=== PATIENT | female | born 1965 | race Caucasian/White ===

== ENCOUNTER 2018-05-07 11:47 | Inpatient (IN) | payer MEDICARE, MEDICAID ==
[~2018-05-07] VITALS: Ht 168.9 cm; Wt 82.6 kg
--- NOTE | 2018-05-07 14:40 | NUR ---
Admit Note: Legal Status: 5150 / Conserved Pt brought to unit from [facility] the order was accepted by Dr. Guzmán. On 05/06/18 pt called crisis services stating she was going to kill herself and had stabbed herself in the stomach. Pt has been decreasing mentally becoming paranoid. All consent forms sent to [place] [facility] see legal consents in chart Property inventoried and put in safe and locker. Pt reports she is allergic to Zyprexa.
[2018-05-07 15:48] VITALS: BP 133/95
[2018-05-07] MEDS ORDERED: tuberculin, purif. prot. deriv. 5 units/0.1ml ID ONE (16:05)
[2018-05-07] MEDS ORDERED: acetaminophen 325mg tablet PO PRN ×2 (16:06)
[2018-05-07] MEDS ORDERED: mag hydrox/Alum hydrox/simeth 30ml oral suspension PO PRN (16:06)
[2018-05-07] MEDS ORDERED: CLON-527 PO ×2 (16:32→17:25)
[2018-05-07] MEDS ORDERED: DOCU-148 PO (16:32)
[2018-05-07] MEDS ORDERED: HYDR50CA PO ×3 (16:32→17:25)
[2018-05-07] MEDS ORDERED: ZIPR60CA2 PO ×2 (16:32→17:25)
[2018-05-07] MEDS ORDERED: LEVO75TA PO ×2 (16:32→17:25)
[2018-05-07] MEDS ORDERED: ZIPR40CA2 PO ×2 (16:32→17:25)
[2018-05-07] MEDS ORDERED: NORT25CA PO ×2 (16:32→17:25)
[2018-05-07] MEDS ORDERED: METF500T PO ×2 (16:32→17:25)
[2018-05-07 17:16] VITALS: BP 133/95
[2018-05-07] MEDS ORDERED: DOCU250C15 PO (17:25)
--- NOTE | 2018-05-07 17:37 | NUR ---
NURSING ADMIT NOTE Why is patient here: Started experiencing increased paranoia and stating she had been messing up her medications. Recently received a 30 day notice to vacate her apt. which resulted in increased anxiety and sleeplessness. Feels alone and has repeatedly talked about her own . Stated she lied to crisis services about stabbing herself so she could be admitted to the hospital. Paranoid, believes [facility] health employees stole her phone and are lying about her to "keep her locked up for life. Denies suicidal thoughts at this time.
[2018-05-07 19:58] VITALS: BP 155/95
[2018-05-07] MEDS ORDERED: ziprasidone 20mg capsule PO SCH ×2 (21:00)
[2018-05-07] MEDS: docusate sod 250mg capsule PO SCH (21:01)
[2018-05-07] MEDS: hydrOXYzine 25 MG tablet PO SCH (21:02)
[2018-05-07] MEDS: clonazePAM 1mg tablet PO SCH (21:02)
[2018-05-07] MEDS: nicotine prolacrilex 2mg gum BC PRN (21:03)
[2018-05-07] MEDS: nortriptyline 25mg capsule PO SCH (21:16)
--- NOTE | 2018-05-08 00:19 | NUR ---
Nursing Progress note Chief Complaint Legal hold: 9170 Client on involuntary status for DTS Report received from nurse with use of DAMON Lopez rn Why are they here: Started experiencing increased paranoia and stating she had been messing up her medications. Recently received a 30 day notice to vacate her apt. which resulted in increased anxiety and sleeplessness. Feels alone and has repeatedly talked about her own . Stated she lied to crisis services about stabbing herself so she could be admitted to the hospital. Paranoid, believes [facility] health employees stole her phone and are lying about her to "keep her locked up for life. Denies suicidal thoughts at this time. Diagnosis/presenting symptoms: Bipolar, Ptsd, Manic. Pt states "Im more manic than depressed." Assessment What has happened this shift: Pt was sleeping at change of shift. 1:1 assessment completed at bedside. pt denies s/i, denies h/i. States she called the police and said she stabbed herself because she couldnt find her phone and believes "the mental health people stole my phone and I called the police but its the only way to get them to do something because they dont believe mental health people so I had to say I stabbed myself, no Im going to be in trouble for making false reports, but its not my fault." Pt was manic and talkative during her shift, moving from group room to her room and walking the hallways. S/I, H/I: Pt denies A/VH: Pt denies Sleep: pt states she will not sleep tonight w/out 2 klonopin, pt had difficult time falling asleep but eventually did. ADL's: independently. Group attendance: no evening groups Were meds taken: Yes Any med S/E: None reported or observed Mental Status Exam Appearance: Pt is wearing green scrubs and fingerless mittens on her hands. Pt has long unkempt hair. pt is adequately groomed and dressed. Eye contact: Good Behavior: manic talkative Speech: rapid, lout, talkative Mood: anxious, Affect: animated Thought process: tangential Thought Content: talking about why she is here. Cognition: a/o x4 Insight: Poor Judgment: Poor Interventions PRN's used: Nicotine Gum Therapeutic interventions: q15 min checks for safety, 1:1 assessment, Restraints/seclusion/emergency medication: no Justification of Continued Inpatient Treatment: Medication stabilization
[2018-05-08] MEDS: nicotine prolacrilex 2mg gum BC PRN ×4 (07:00→20:52)
[2018-05-08] MEDS: metFORMIN 500mg tablet PO SCH ×3 (07:00→16:22)
[2018-05-08 08:00] VITALS: BP 142/74
[2018-05-08] MEDS: levoTHYROXINE 75mcg tablet PO SCH (08:37)
[2018-05-08] MEDS: ziprasidone 20mg capsule PO SCH ×2 (08:37→20:49)
[2018-05-08 09:04] LABS: HEMOGLOBIN A1C 5.8 % (4.5-6.2)
--- NOTE | 2018-05-08 13:10 | NUR ---
Patient was discharged to [facility] at 1310. All belongings were inventoried and given to patient. Patient denies SI. All postop appointments made for patient to follow-up. Addendum: 05/08/18 at 1436 by Angélica Hogan RN Disregard, wrong patient.
--- NOTE | 2018-05-08 14:44 | NUR ---
Nursing Progress note Chief Complaint Legal hold: 5150 Client on involuntary status for DTS Report received from Shabnam with use of SBAR. Why are they here: Started experiencing increased paranoia and stating she had been messing up her medications. Recently received a 30 day notice to vacate her apt. which resulted in increased anxiety and sleeplessness. Feels alone and has repeatedly talked about her own . Stated she lied to crisis services about stabbing herself so she could be admitted to the hospital. Paranoid, believes [facility] health employees stole her phone and are lying about her to "keep her locked up for life. Denies suicidal thoughts at this time. Diagnosis/presenting symptoms: Bipolar, Ptsd, Manic. Assessment What has happened this shift: Patient has been loud and complaining this morning about staff at her previous residence are lying to her, stealing her things - phone. Patient spoke with conservator today, spoke with SW. Appears hypomanic. S/I, H/I: Pt denies A/VH: Denies. Sleep: Patient states she slept well. ADL's: independent. Group attendance: Yes. Were meds taken: Yes Any med S/E: None reported or observed Mental Status Exam Appearance: Tall female with long strawberry blonde hair, wearing green scrubs. Eye contact: Good Behavior: manic talkative Speech: rapid, loud, talkative Mood: anxious, Affect: animated Thought process: tangential Thought Content: Her things being stolen at prior residence. Cognition: a/o x4 Insight: Poor Judgment: Poor Interventions PRN's used: Nicotine Gum Therapeutic interventions: q15 min checks for safety, 1:1 assessment, Restraints/seclusion/emergency medication: no Justification of Continued Inpatient Treatment: Medication stabilization and support.
[2018-05-08] MEDS: magnesium hydroxide 30ml (MOM) UD suspension PO PRN (16:35)
[2018-05-08 19:00] VITALS: BP 137/86
[2018-05-08] MEDS ORDERED: bisacodyl 10mg suppository rectal RC PRN (19:35)
[2018-05-08] MEDS ORDERED: bisacodyl 5mg tablet.DR PO PRN (19:35)
[2018-05-08] MEDS: hydrOXYzine 25 MG tablet PO SCH (20:47)
[2018-05-08] MEDS: docusate sod 250mg capsule PO SCH (20:48)
[2018-05-08] MEDS: clonazePAM 1mg tablet PO SCH (20:49)
[2018-05-08] MEDS: nortriptyline 25mg capsule PO SCH (20:49)
--- NOTE | 2018-05-08 21:48 | NUR ---
pt refusing evening blood sugar check
[2018-05-08] MEDS: hydrOXYzine 25 MG tablet PO PRN (23:56)
--- NOTE | 2018-05-09 04:55 | NUR ---
Nursing Progress note Chief Complaint Legal hold: 5150 Client on involuntary status for DTS Report received from Angélica with use of SBAR. Why are they here: Started experiencing increased paranoia and stating she had been messing up her medications. Recently received a 30 day notice to vacate her apt. which resulted in increased anxiety and sleeplessness. Feels alone and has repeatedly talked about her own . Stated she lied to crisis services about stabbing herself so she could be admitted to the hospital. Paranoid, believes [facility] health employees stole her phone and are lying about her to "keep her locked up for life. Denies suicidal thoughts at this time. Diagnosis/presenting symptoms: Bipolar, Ptsd, Manic. Assessment What has happened this shift: Pt visible on the unit, she is quite verbal and animated, social with peers/staff. She was making sexually inappropriate comments to male staff, but was redirectable. She took her evening meds and went to bed, she got up in the middle of the night x 2 and stated that she can't sleep unless she has 2 mg of Klonopin, I told her she had been sleeping and to try to return to bed, but she stated she hadn't and became angry. I heard pt snoring each time I checked on her to see how she was sleeping. I did give her a PRN Atarax for anxiety/agitation and she returned to sleep. S/I, H/I: Pt denies A/VH: Denies. Sleep: appears to sleep well, did wake up x 2 as stated above ADL's: independent. Group attendance: no groups scheduled this shift Were meds taken: Yes Any med S/E: None reported or observed Mental Status Exam Appearance: pt wearing tube top with spaghetti strap dress, being provocative with male staff Eye contact: Good Behavior: hypomanic, sexually inappropriate at times Speech: pressured, loud volume Mood: elevated Affect: euthymic Thought process: linear Thought Content: paranoid, thinks people are stealing things Cognition: a/o x4 Insight: Poor Judgment: Poor Interventions PRN's used: Nicotine Gum, atarax Therapeutic interventions: q15 min checks for safety, 1:1 assessment, medication administration and monitored for effects/side effects, redirected as needed Restraints/seclusion/emergency medication: no Justification of Continued Inpatient Treatment: Pt admitted due to DTS and psychotic symptoms, she requires acute psychiatric stabilization.
[2018-05-09] MEDS: metFORMIN 500mg tablet PO SCH ×3 (07:24→17:36)
[2018-05-09] MEDS: levoTHYROXINE 75mcg tablet PO SCH (07:24)
[2018-05-09] MEDS: ziprasidone 20mg capsule PO SCH ×2 (07:25→21:37)
[2018-05-09] MEDS: nicotine prolacrilex 2mg gum BC PRN ×2 (07:42→15:47)
[2018-05-09 07:50] VITALS: BP 129/86
[2018-05-09 08:23] LABS: CHOLESTEROL 186 MG/DL (0-200); HDL CHOLESTEROL 46 MG/DL (35-60); LDL CHOLESTEROL 122 MG/DL (50-100); TRIGLYCERIDES 111 MG/DL (20-135)
[2018-05-09] MEDS: hydrOXYzine 25 MG tablet PO PRN ×2 (09:11→23:47)
[2018-05-09] MEDS ORDERED: tuberculin, purif. prot. deriv. 5 units/0.1ml ID ONE (16:05)
--- NOTE | 2018-05-09 16:44 | NUR ---
marble worker 1:1 The undersigned clinician met individually with pt. Pt. expressed concern about her voice being loud. Pt. reports feeling as though others are getting upset with her for speaking loudly. Pt. reports she is not able to lower her voice and wonders if she may be loosing her hearing. Discussed with patient that we will be talking about communication skills tomorrow in the group. Plan=collaborate with treatment team Eve SUE
--- NOTE | 2018-05-09 17:06 | NUR ---
Nursing Progress note Chief Complaint Legal hold: LPS Conserved Client on involuntary status DTS Report received from MELVIN Cruz with use of SBAR. Why are they here: Started experiencing increased paranoia and stating she had been messing up her medications. Recently received a 30 day notice to vacate her apt. which resulted in increased anxiety and sleeplessness. Feels alone and has repeatedly talked about her own . Stated she lied to crisis services about stabbing herself so she could be admitted to the hospital. Paranoid, believes [facility] health employees stole her phone and are lying about her to "keep her locked up for life. Denies suicidal thoughts at this time. Diagnosis/presenting symptoms: Bipolar, Ptsd, Manic. Assessment What has happened this shift: The patient was awake at change of shift sittine in group room. Asking to speak with doctor because she needs to "know if I'm going back to my home and when." this was the theme all day. Intrusive and perseverating on the above but mostly redirectable. Labile mood, anxious affect. Attends meals and groups with others. Placed ppD. Multiple PRN's today, nictne gum, asking for atarax and klonipin frequently. Layed on bed for awhile. Paranoid, thinking, her roommates are "stealing her stuff." S/I, H/I: Pt denies A/VH: Denies. Sleep: napped briefly ADL's: independent. Group attendance: yes Were meds taken: Yes Any med S/E: None reported or observed Mental Status Exam Appearance: appropriate Eye contact: Good Behavior: hypomanic, intrusive Speech: pressured, loud volume Mood: elevated Affect: euthymic Thought process: linear Thought Content: paranoid, thinks people are stealing things Cognition: a/o x4 Insight: Poor Judgment: Poor Interventions PRN's used: Nicotine Gum, atarax Therapeutic interventions: q15 min checks for safety, 1:1 assessment, medication administration and monitored for effects/side effects, redirected as needed Restraints/seclusion/emergency medication: no Justification of Continued Inpatient Treatment: Pt admitted due to DTS and psychotic symptoms, she requires acute psychiatric stabilization
[2018-05-09 20:39] VITALS: BP 135/97
[2018-05-09] MEDS: nortriptyline 25mg capsule PO SCH (21:37)
[2018-05-09] MEDS: hydrOXYzine 25 MG tablet PO SCH (21:37)
[2018-05-09] MEDS: clonazePAM 1mg tablet PO SCH (21:37)
[2018-05-09] MEDS: docusate sod 250mg capsule PO SCH (21:37)
--- NOTE | 2018-05-09 23:25 | NUR ---
Nursing Progress note Chief Complaint Legal hold: LPS conserved Client on involuntary status for DTS Report received from Jessica with use of SBAR. Why are they here: Started experiencing increased paranoia and stating she had been messing up her medications. Recently received a 30 day notice to vacate her apt. which resulted in increased anxiety and sleeplessness. Feels alone and has repeatedly talked about her own . Stated she lied to crisis services about stabbing herself so she could be admitted to the hospital. Paranoid, believes [facility] health employees stole her phone and are lying about her to "keep her locked up for life. Denies suicidal thoughts at this time. Diagnosis/presenting symptoms: Bipolar, Ptsd, Manic. Assessment What has happened this shift: Pt visible on the unit, she continues to be loud, hyperverbal, demanding at times, fixated on having bowel movements even though she was able to have one today. She interacted with another female peer and states they get along well because they are both Bipolar. Pt requested to take a shower and wanted her meds early because she felt tired, but after she took the shower she stated she was wide awake now and wanted to wait on her meds. Pt took meds and then went to bed, she was sleeping and again got up and stated she will not be able to sleep unless she is on the meds she used to be and keeps stating she needs Klonopin 2 mg to sleep. I reminded her that she did sleep about 7 hours the last two nights, to which pt stated she normally sleeps 9 to 10 hours. Pt is redirectable. S/I, H/I: Pt denies A/VH: Denies. Sleep: pt sleeping about 6 to 7 hours a night, but she states she normally sleeps 9 to 10 hrs ADL's: independent. Group attendance: no groups scheduled this shift Were meds taken: Yes Any med S/E: None reported or observed Mental Status Exam Appearance: pt wearing tube top with spaghetti strap dress, Eye contact: Good Behavior: hypomanic, intrusive and demanding at times Speech: pressured, loud volume Mood: elevated Affect: euthymic Thought process: linear Thought Content:wnl, no delusional statements made during interaction Cognition: a/o x4 Insight: Poor Judgment: Poor Interventions PRN's used: Nicotine Gum, atarax Therapeutic interventions: q15 min checks for safety, 1:1 assessment, medication administration and monitored for effects/side effects, redirected as needed Restraints/seclusion/emergency medication: no Justification of Continued Inpatient Treatment: Pt admitted due to DTS and psychotic symptoms, she requires acute psychiatric stabilization.
[2018-05-10] MEDS: nicotine prolacrilex 2mg gum BC PRN ×3 (05:37→16:15)
--- NOTE | 2018-05-10 05:41 | NUR ---
Pt slept well through the night, sleeping a total of 7 hrs, this am she is raising her voice stating she wants her meds back to the way they were because she isn't sleeping. I told her she did sleep and she argues stating it is not the normal 8 to 9 hrs she gets, I told her 7 hrs is only one hour less than 8 and that she can discuss her medication concerns with the Dr during their visit. To this she stated "I already tried."
[2018-05-10] MEDS: levoTHYROXINE 75mcg tablet PO SCH (07:28)
[2018-05-10] MEDS: metFORMIN 500mg tablet PO SCH ×3 (07:28→17:55)
[2018-05-10] MEDS: ziprasidone 20mg capsule PO SCH ×2 (07:29→20:27)
[2018-05-10 08:25] VITALS: BP 127/97
--- NOTE | 2018-05-10 16:53 | NUR ---
Nursing Progress note Chief Complaint Legal hold: LPS conserved Client on involuntary status for DTS Report received from Nancy with use of SBAR. Why are they here: Started experiencing increased paranoia and stating she had been messing up her medications. Recently received a 30 day notice to vacate her apt. which resulted in increased anxiety and sleeplessness. Feels alone and has repeatedly talked about her own . Stated she lied to crisis services about stabbing herself so she could be admitted to the hospital. Paranoid, believes [facility] health employees stole her phone and are lying about her to "keep her locked up for life. Diagnosis/presenting symptoms: Bipolar, Ptsd, Manic. Assessment Received patient awake in bed. Patient refused breakfast and stated she just wanted to be left alone. She did not become loud or agitated when asking to be left alone. Patient did get up later and washed her clothes and put on hospital scrubs. Patient refused to take a shower. Patient requested nicotine gum periodically throughout the day. Patient exhibited no sexually inappropriate behavior today and did not voice any delusional thought content, but did appear suspicious and paranoid of staff at times recognized by her facial expressions. Patient denied suicidal ideation and denies auditory hallucinations. Patient did not attend groups but instead was laying on her bed. S/I, H/I: Pt denies A/VH: Denies. Sleep: 7 hours last night ADL's: independent. Group attendance: refused both groups Were meds taken: Yes Any med S/E: None reported or observed Mental Status Exam Appearance: pt wearing tube top with spaghetti strap dress, Eye contact: Good Behavior: hypomanic, intrusive and demanding at times Speech: pressured, loud volume Mood: elevated Affect: euthymic Thought process: linear Thought Content:wnl, no delusional statements made during interaction Cognition: a/o x4 Insight: Poor Judgment: Poor Interventions PRN's used: Nicotine Gum, atarax Therapeutic interventions: q15 min checks for safety, 1:1 assessment, medication administration and monitored for effects/side effects, redirected as needed Restraints/seclusion/emergency medication: no Justification of Continued Inpatient Treatment: Pt admitted due to DTS and psychotic symptoms, she requires acute psychiatric stabilization.
[2018-05-10 19:00] VITALS: BP 138/78
[2018-05-10] MEDS: hydrOXYzine 25 MG tablet PO SCH (20:25)
[2018-05-10] MEDS: docusate sod 250mg capsule PO SCH (20:26)
[2018-05-10] MEDS: nortriptyline 25mg capsule PO SCH (20:26)
[2018-05-10] MEDS: clonazePAM 0.5mg tablet PO SCH (20:26)
--- NOTE | 2018-05-11 03:18 | NUR ---
Nursing Progress note Chief Complaint Legal hold: LPS conserved Client on involuntary status for DTS Report received from Kingsley RN with use of SBAR. Why are they here: Started experiencing increased paranoia and stating she had been messing up her medications. Recently received a 30 day notice to vacate her apt. which resulted in increased anxiety and sleeplessness. Feels alone and has repeatedly talked about her own . Stated she lied to crisis services about stabbing herself so she could be admitted to the hospital. Paranoid, believes [facility] health employees stole her phone and are lying about her to "keep her locked up for life. Denies suicidal thoughts at this time. Diagnosis/presenting symptoms: Bipolar, Ptsd, Manic. Assessment What has happened this shift: Pt visible on the unit, she was seen pacing at times and she was irritable and stating that the meds were making her brain feel "fuzzy", she kept perseverating on this and was stating she thought it was from the atarax, and felt that the pills were different than what she takes at home and feels like they are too strong, but later after she ate food and had some fluids she stated she felt better and no longer felt like her brain was "fuzzy". During this time she was anxious, I tried to educate her and we discussed ways to deal with her anxiety, her insight into why she is here is limited, she continues to think its because someone stole an item from her. Pt had snacks and socialized with a female peer, and then took her evening meds and has been sleeping well tonight. S/I, H/I: Pt denies A/VH: Denies. Sleep: pt appears to be sleeping well tonight with increase in Geodon and Klonopin, pt has not been up at all tonight, which is an improvement. ADL's: independent. Group attendance: no groups scheduled this shift Were meds taken: Yes Any med S/E: None reported or observed Mental Status Exam Appearance: pt wearing tube top with spaghetti strap dress, Eye contact: Good Behavior: anxious, continues to be demanding at times Speech: normal rate, rhythm, still talks in a loud volume Mood: irritable at times Affect: angry, irritable at times Thought process: linear Thought Content:wnl, still some paranoia about people taking things from her Cognition: a/o x4 Insight: Poor Judgment: Poor Interventions PRN's used: none Therapeutic interventions: q15 min checks for safety, 1:1 assessment, medication administration and monitored for effects/side effects, redirected as needed Restraints/seclusion/emergency medication: no Justification of Continued Inpatient Treatment: Pt admitted due to DTS and psychotic symptoms, she requires acute psychiatric stabilization.
[2018-05-11] MEDS: nicotine prolacrilex 2mg gum BC PRN ×3 (06:32→19:01)
[2018-05-11 07:49] VITALS: BP 119/82
[2018-05-11] MEDS: metFORMIN 500mg tablet PO SCH ×3 (07:50→16:29)
[2018-05-11] MEDS: ziprasidone 20mg capsule PO SCH ×2 (07:50→20:07)
[2018-05-11] MEDS: levoTHYROXINE 75mcg tablet PO SCH (07:50)
--- NOTE | 2018-05-11 14:37 | NUR ---
Nursing Progress note Chief Complaint Mood instability Legal hold: LPS Conserved Client on involuntary status DTS Report received from MELVIN Cruz with use of SBAR. Why are they here: Started experiencing increased paranoia and stating she had been messing up her medications. Recently received a 30 day notice to vacate her apt. which resulted in increased anxiety and sleeplessness. Feels alone and has repeatedly talked about her own . Stated she lied to crisis services about stabbing herself so she could be admitted to the hospital. Paranoid, believes behavioral health employees stole her phone and are lying about her to "keep her locked up for life. Denies suicidal thoughts at this time. Diagnosis/presenting symptoms: Bipolar 1, PTSD. Assessment What has happened this shift: Up at change of shift. Patient took her medications, but refused to have her blood glucose checked. Her voice is very loud. She keeps restating that someone at the [facility] stole her phone. "I can't go back to [place]. There is nothing but meth in [place]. I am serious. I look like a piece of meat in [place]. I need a letter from Sheriff [place] that he will look out for my safety." Patient is up on the unit socializing. She lays down a few times but does not sleep. "I am just bored." S/I, H/I: Pt denies A/VH: Denies. Sleep: napped briefly ADL's: independent. Group attendance: no groups Were meds taken: Yes Any med S/E: None reported or observed Mental Status Exam Appearance: disheveled Eye contact: Good Behavior: hypomanic, intrusive Speech: pressured, loud volume Mood: paranoid, hypomanic Affect: euthymic Thought process: goal oriented Thought Content: paranoid, thinks people are stealing things Cognition: a/o x4 Insight: Poor Judgment: Poor Interventions PRN's used: Nicotine Gum Therapeutic interventions: q15 min checks for safety, 1:1 assessment, medication administration and monitored for effects/side effects, redirected as needed Restraints/seclusion/emergency medication: no Justification of Continued Inpatient Treatment: Pt admitted due to DTS and psychotic symptoms, she requires acute psychiatric stabilization
[2018-05-11 19:57] VITALS: BP 133/82
[2018-05-11] MEDS: nortriptyline 25mg capsule PO SCH (20:06)
[2018-05-11] MEDS: hydrOXYzine 25 MG tablet PO SCH (20:07)
[2018-05-11] MEDS: docusate sod 250mg capsule PO SCH (20:08)
[2018-05-11] MEDS: clonazePAM 0.5mg tablet PO SCH (20:08)
[2018-05-11] MEDS: hydrOXYzine 25 MG tablet PO PRN (21:45)
--- NOTE | 2018-05-11 22:50 | NUR ---
Nursing Progress note Chief Complaint Mood instability Legal hold: LPS Conserved Client on involuntary status DTS Report received from MELVIN Gomez with use of SBAR. Why are they here: Started experiencing increased paranoia and stating she had been messing up her medications. Recently received a 30 day notice to vacate her apt. which resulted in increased anxiety and sleeplessness. Feels alone and has repeatedly talked about her own . Stated she lied to crisis services about stabbing herself so she could be admitted to the hospital. Paranoid, believes behavioral health employees stole her phone and are lying about her to "keep her locked up for life. Denies suicidal thoughts at this time. Diagnosis/presenting symptoms: Bipolar 1, PTSD. Assessment What has happened this shift: Up at change of shift. Patient stands in hallway and talks loudly with auto service writer about how she can absolutely never go back to [place]. She states, "I was almost murdered and jairo there and my conservator wants to send me back there to live in a cockroach infested hotel." She is clearly upset and seems to truly think her life is in danger if she returns to [place]. She also says, "All the women there want to kill me because I am skinny and I don't do drugs, I only smoke cigarettes." Pt calmed down and walked away. Then she was in the group room and as I passed her she said, "You look just like my daughter, Letty." After she said this she began to cry. Rag Baler sat and talked with her about her daughter which the pt seemed to enjoy. She requested atarax before bed, took it with water then stated she "was going to of insomnia wand so is everyone else." S/I, H/I: Pt denies A/VH: Denies. Sleep: see sleep assessment notation ADL's: independent. Group attendance: no groups Were meds taken: Yes Any med S/E: None reported or observed Mental Status Exam Appearance: disheveled Eye contact: Good Behavior: hypomanic Speech: pressured, loud volume Mood: paranoid, hypomanic Affect: euthymic Thought process: goal oriented Thought Content: paranoid, thinks she will if she goes to [place] Cognition: a/o x4 Insight: Poor Judgment: Poor Interventions PRN's used: Nicotine Gum, atarax Therapeutic interventions: q15 min checks for safety, 1:1 assessment, medication administration and monitored for effects/side effects, redirected as needed Restraints/seclusion/emergency medication: no Justification of Continued Inpatient Treatment: Pt admitted due to DTS and psychotic symptoms, she requires acute psychiatric stabilization
[2018-05-12] MEDS: ziprasidone 20mg capsule PO SCH ×2 (07:07→20:09)
[2018-05-12] MEDS: levoTHYROXINE 75mcg tablet PO SCH (07:07)
[2018-05-12] MEDS: metFORMIN 500mg tablet PO SCH ×3 (07:08→16:23)
[2018-05-12 08:00] VITALS: BP 103/61
[2018-05-12] MEDS: nicotine prolacrilex 2mg gum BC PRN ×2 (12:51→20:26)
--- NOTE | 2018-05-12 13:14 | NUR ---
Patient has good appetite and eating well. Average PO intake of 75-100% of MD ordered carb controlled diet. No h/o DM and A1C <7. Having routine BMs. No nutrition problem at this time. Recommend: 1. Continue carb controlled diet 2. Weekly weights Addendum: 05/12/18 at [address] Amended: Links added.
--- NOTE | 2018-05-12 13:37 | NUR ---
Nursing Progress note Chief Complaint Mood instability Legal hold: LPS Conserved Client on involuntary status DTS Report received from MELVIN Chawla with use of SBAR. Why are they here: Started experiencing increased paranoia and stating she had been messing up her medications. Recently received a 30 day notice to vacate her apt. which resulted in increased anxiety and sleeplessness. Feels alone and has repeatedly talked about her own . Stated she lied to crisis services about stabbing herself so she could be admitted to the hospital. Paranoid, believes behavioral health employees stole her phone and are lying about her to "keep her locked up for life. Denies suicidal thoughts at this time. Diagnosis/presenting symptoms: Bipolar 1, PTSD. Assessment What has happened this shift: Patient easily awakened for breakfast and medications. She attended morning group. She has asked repeatedly what the plan is for her housing after she leaves here. She states she doesn't think that she is allowed back at [facility]. She also thinks that all of her belongings are there and is eager to speak to the public guardian in [facility] about retrieving her things. Her voice is loud when she talks. She makes offhand statements like "There are helicopters looking for me in [place]. The [facility] has had my rights for 23 years." "I can't go back to [place]. I am like a piece of meat to them." S/I, H/I: Pt denies A/VH: Denies. Sleep: napped briefly ADL's: independent. No shower today. Group attendance: Yes Were meds taken: Yes Any med S/E: None reported or observed Mental Status Exam Appearance: disheveled Eye contact: Good Behavior: hypomanic, intrusive Speech: pressured, loud volume Mood: paranoid, hypomanic Affect: euthymic Thought process: future oriented Thought Content: paranoid, thinks people are stealing things Cognition: a/o x4 Insight: Poor Judgment: Poor Interventions PRN's used: Nicotine Gum Therapeutic interventions: q15 min checks for safety, 1:1 assessment, medication administration and monitored for effects/side effects, redirected as needed Restraints/seclusion/emergency medication: no Justification of Continued Inpatient Treatment: Pt admitted due to DTS and psychotic symptoms, she requires psychiatric stabilization and placement.
[2018-05-12 19:33] VITALS: BP 117/51
[2018-05-12] MEDS: hydrOXYzine 25 MG tablet PO SCH (20:09)
[2018-05-12] MEDS: clonazePAM 0.5mg tablet PO SCH (20:09)
[2018-05-12] MEDS: nortriptyline 25mg capsule PO SCH (20:09)
[2018-05-12] MEDS: docusate sod 250mg capsule PO SCH (20:10)
[2018-05-12] MEDS: hydrOXYzine 25 MG tablet PO PRN (20:52)
--- NOTE | 2018-05-12 22:20 | NUR ---
Nursing Progress note Chief Complaint Mood instability Legal hold: LPS Conserved Client on involuntary status DTS Report received from MELVIN Gomez with use of SBAR. Why are they here: Started experiencing increased paranoia and stating she had been messing up her medications. Recently received a 30 day notice to vacate her apt. which resulted in increased anxiety and sleeplessness. Feels alone and has repeatedly talked about her own . Stated she lied to crisis services about stabbing herself so she could be admitted to the hospital. Paranoid, believes behavioral health employees stole her phone and are lying about her to "keep her locked up for life. Denies suicidal thoughts at this time. Diagnosis/presenting symptoms: Bipolar 1, PTSD. Assessment What has happened this shift: Patient is walking around and in a good mood. She tells jingle writer that jingle writer looks, "just like" her daughter, Letty. She talks about her for awhile and what she looks like. This seems to make patient feel better. She talks about how she needs more sleeping medication and how "you guys don't give me enough pills to sleep here, I take a lot more usually." Pt says she is an insomniac and she said, "Seroquel made me an insomniac it's because I took Seroquel." She tells jingle writer that she wrote a poem today and shows jingle writer where it is on the wall in the group room. 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 " S/I, H/I: Pt denies A/VH: Denies. Sleep: see sleep assessment notation ADL's: independent. Group attendance: night shifts, no groups Were meds taken: Yes Any med S/E: None reported or observed Mental Status Exam Appearance: unkept, dress straps twisted and not properly fitting Eye contact: fair Behavior: hypomanic Speech: pressured, loud volume Mood: paranoid, hypomanic Affect: euthymic Thought process: goal oriented Thought Content: WNL Cognition: a/o x4 Insight: Poor Judgment: Poor Interventions PRN's used: Nicotine Gum, atarax Therapeutic interventions: q15 min checks for safety, 1:1 assessment, medication administration and monitored for effects/side effects, redirected as needed Restraints/seclusion/emergency medication: no Justification of Continued Inpatient Treatment: Pt admitted due to DTS and psychotic symptoms, she requires acute psychiatric stabilization
[2018-05-13 07:40] VITALS: BP 164/90
[2018-05-13] MEDS: levoTHYROXINE 75mcg tablet PO SCH (07:48)
[2018-05-13] MEDS: metFORMIN 500mg tablet PO SCH ×3 (07:48→16:53)
[2018-05-13] MEDS: ziprasidone 20mg capsule PO SCH ×2 (07:48→21:02)
[2018-05-13] MEDS: nicotine prolacrilex 2mg gum BC PRN ×3 (08:07→20:54)
--- NOTE | 2018-05-13 13:12 | NUR ---
Nursing Progress Note: Chief Complaint Mood instability Legal hold: LPS Conserved Client on involuntary status DTS Report received from MELVIN Chawla with use of SBAR. Why are they here: Started experiencing increased paranoia and stating she had been messing up her medications. Recently received a 30 day notice to vacate her apt. which resulted in increased anxiety and sleeplessness. Feels alone and has repeatedly talked about her own . Stated she lied to crisis services about stabbing herself so she could be admitted to the hospital. Paranoid, believes behavioral health employees stole her phone and are lying about her to "keep her locked up for life. Denies suicidal thoughts at this time. Diagnosis/presenting symptoms: Bipolar 1, PTSD. Assessment What has happened this shift: Patient easily awakened for breakfast and medications. She ate breakfast. She attended morning group. She kept a low profile on the unit today. She seems very concerned that she may have to go to the [facility] in [facility]. S/I, H/I: Pt denies A/VH: Denies. Sleep: napped briefly ADL's: independent. No shower today. Group attendance: Yes Were meds taken: Yes Any med S/E: None reported or observed Mental Status Exam Appearance: disheveled Eye contact: Good Behavior: hypomanic, intrusive Speech: pressured, loud volume Mood: paranoid, hypomanic Affect: euthymic Thought process: future oriented Thought Content: paranoid, thinks people are stealing things Cognition: a/o x4 Insight: Poor Judgment: Poor Interventions PRN's used: Nicotine Gum Therapeutic interventions: q15 min checks for safety, 1:1 assessment, medication administration and monitored for effects/side effects, redirected as needed Restraints/seclusion/emergency medication: no Justification of Continued Inpatient Treatment: Pt admitted due to DTS and psychotic symptoms, she requires psychiatric stabilization and placement.
[2018-05-13 20:08] VITALS: BP 142/86
[2018-05-13] MEDS: nortriptyline 25mg capsule PO SCH (21:02)
[2018-05-13] MEDS: docusate sod 250mg capsule PO SCH (21:02)
[2018-05-13] MEDS: hydrOXYzine 25 MG tablet PO SCH (21:03)
[2018-05-13] MEDS: clonazePAM 0.5mg tablet PO SCH (21:03)
[2018-05-13] MEDS: hydrOXYzine 25 MG tablet PO PRN (21:49)
--- NOTE | 2018-05-13 23:49 | NUR ---
Nursing Progress note Chief Complaint Mood instability Legal hold: LPS Conserved Client on involuntary status DTS Report received from MELVIN Gomez with use of SBAR. Why are they here: Started experiencing increased paranoia and stating she had been messing up her medications. Recently received a 30 day notice to vacate her apt. which resulted in increased anxiety and sleeplessness. Feels alone and has repeatedly talked about her own . Stated she lied to crisis services about stabbing herself so she could be admitted to the hospital. Paranoid, believes behavioral health employees stole her phone and are lying about her to "keep her locked up for life. Denies suicidal thoughts at this time. Diagnosis/presenting symptoms: Bipolar 1, PTSD. Assessment What has happened this shift: Patient is in the community room sitting and watching a movie. She is very talkative with medical underwriter and talks for about 15 minutes nonstop. The subjects vary from how she used to play outside as a young girl and how now, "kids don't play outside they just watch video games and get diabetes." She also tells medical underwriter, "your going to lose your job one day because soon, the machines and robots will take over and you'll be out of work." She requests her prn atarax immediately after taking her HS medications, medical underwriter gave atarax an hour later. Educated pt on medications and the rationale on why not to take atarax and all of her HS meds at once. She is still very focused on the thought that she will from insomnia. S/I, H/I: Pt denies A/VH: Denies. Sleep: see sleep assessment notation ADL's: independent. Group attendance: no groups Were meds taken: Yes Any med S/E: None reported or observed Mental Status Exam Appearance: disheveled Eye contact: Good Behavior: hypomanic Speech: pressured, loud volume Mood: paranoid, hypomanic Affect: euthymic Thought process: goal oriented Thought Content: paranoid, thinks she will due to insomnia Cognition: a/o x4 Insight: Poor Judgment: Poor Interventions PRN's used: Nicotine Gum, atarax Therapeutic interventions: q15 min checks for safety, 1:1 assessment, medication administration and monitored for effects/side effects, redirected as needed Restraints/seclusion/emergency medication: no Justification of Continued Inpatient Treatment: Pt admitted due to DTS and psychotic symptoms, she requires acute psychiatric stabilization
[2018-05-14] MEDS: ziprasidone 20mg capsule PO SCH ×2 (07:38→20:30)
[2018-05-14] MEDS: levoTHYROXINE 75mcg tablet PO SCH (07:38)
[2018-05-14] MEDS: metFORMIN 500mg tablet PO SCH ×3 (07:39→16:44)
[2018-05-14 08:00] VITALS: BP 111/81
[2018-05-14] MEDS: magnesium hydroxide 30ml (MOM) UD suspension PO PRN (12:07)
[2018-05-14] MEDS: NICOTINE POLACRILEX 2 MG LOZENGE MM PRN (13:51)
--- NOTE | 2018-05-14 17:32 | NUR ---
Nursing Progress note Chief Complaint Mood instability Legal hold: LPS Conserved Client on involuntary status DTS Report received from MELVIN Chawla with use of SBAR. Why are they here: Started experiencing increased paranoia and stating she had been messing up her medications. Recently received a 30 day notice to vacate her apt. which resulted in increased anxiety and sleeplessness. Feels alone and has repeatedly talked about her own . Stated she lied to crisis services about stabbing herself so she could be admitted to the hospital. Paranoid, believes behavioral health employees stole her phone and are lying about her to "keep her locked up for life. Denies suicidal thoughts at this time. Diagnosis/presenting symptoms: Grave disability F31.2 Bipolar 1 disorder, manic severe with psychotic symptoms, r/o F25.0 Schizoaffective d/o, manic F43.12 PTSD (post-traumatic stress disorder)-- Assessment What has happened this shift: Patient met in group room for morning medications. She states she was upset last night when she was awoken by the nurses laughing but that she was able to get back to sleep. resting after having breakfast with others in the group room. Patient does not attend morning group. Patient c/o costipation and requests PRN MOM. She also requests nicotine gum which is not available, patient agrees to have a losange. Patient discusses concerns related to housing and her things at her current residence. She reports taking various medications over the years and that she cannot sleep at night due to seroquel. S/I, H/I: Pt denies A/VH: Denies. Sleep: report received patient slept 6.75hrs last night. Patient is observed resting after breakfast, she states that she is very tired ADL's: independent, showered Group attendance: did not attend morning group Were meds taken: Yes Any med S/E: None reported or observed Mental Status Exam Appearance: disheveled Eye contact: direct Behavior: friendly, cooperative Speech: pressured normal rate/rhythm Mood: good Affect: congruent Thought process: goal oriented Thought Content: focused on where she will live Cognition: a/o x4 Insight: fair to good Judgment: Poor Interventions PRN's used: Nicotine losange, MOM Therapeutic interventions: 1:1 therapeutic conversation with RN that included active listening and positive feedback, q15 min checks for safety, redirected as needed Restraints/seclusion/emergency medication: no Justification of Continued Inpatient Treatment: Pt admitted due to DTS and psychotic symptoms. Continued therapeutic support and medication management needed to provide stabilization, prevent decomensation, decreasing risk to patient and readmittance.
[2018-05-14] MEDS: nortriptyline 25mg capsule PO SCH (20:30)
[2018-05-14 20:31] VITALS: BP 136/74
[2018-05-14] MEDS: hydrOXYzine 25 MG tablet PO SCH ×2 (20:31→21:17)
[2018-05-14] MEDS: docusate sod 250mg capsule PO SCH (20:32)
[2018-05-14] MEDS: clonazePAM 0.5mg tablet PO SCH (20:32)
--- NOTE | 2018-05-15 01:14 | NUR ---
Nursing Progress note Chief Complaint Mood instability Legal hold: LPS Conserved Client on involuntary status DTS Report received from Danita CHARLES. Why are they here: Started experiencing increased paranoia and stating she had been messing up her medications. Recently received a 30 day notice to vacate her apt. which resulted in increased anxiety and sleeplessness. Feels alone and has repeatedly talked about her own . Stated she lied to crisis services about stabbing herself so she could be admitted to the hospital. Paranoid, believes behavioral health employees stole her phone and are lying about her to "keep her locked up for life. Denies suicidal thoughts at this time. Diagnosis/presenting symptoms: Bipolar 1, PTSD. Assessment Patient is in her room sitting up in bed at change of shift. She is cooperative for a 1:1 assessment. She spends time back and forth this shift from her room to the group room, interacting with others at times. She is cooperative, but hesitates when agrees to assessment stating "I'm always scared you guys are going to tell me I have COPD or something." Comforted patient trhough active listening, and supportive conversation, and then did her physical assessment. She is cooperative with her evening medications, and then turns to bed once her HS medications were taken. S/I, H/I: Denies A/VH: Denies Sleep: Currently sleeping ADL's: Independent Group attendance: No groups this shift Were meds taken: Yes Any med S/E: None reported or observed Mental Status Exam Appearance: Disheveled, straps of dress hanging off shoulders, hair not brushed Eye contact: Good Behavior: Calm Speech: Pressured, loud volume Mood: Euthymic Affect: Congruent to mood Thought process: Goal oriented Thought Content: Worried about physical health , due to her years of smoking Cognition: A/O x4 Insight: Poor Judgment: Poor Interventions PRN's used: Atarax Therapeutic interventions: 1:1 assessment at patients bedside. Provide safe, therapeutic environment to establish rapport. Medication education, and administration. Monitor patient for medication side effects. Q 15 minute safety checks Restraints/seclusion/emergency medication: No Justification of Continued Inpatient Treatment: Patient admitted due to DTS and psychotic symptoms, she requires acute psychiatric stabilization
[2018-05-15] MEDS: ziprasidone 20mg capsule PO SCH ×2 (07:45→20:31)
[2018-05-15] MEDS: metFORMIN 500mg tablet PO SCH ×3 (07:45→16:57)
[2018-05-15] MEDS: levoTHYROXINE 75mcg tablet PO SCH (07:45)
[2018-05-15 08:00] VITALS: BP 114/78
--- NOTE | 2018-05-15 17:08 | NUR ---
Nursing Progress note Chief Complaint Mood instability Legal hold: LPS Conserved Client on involuntary status DTS Report received from MELVIN Chawla with use of SBAR. Why are they here: Started experiencing increased paranoia and stating she had been messing up her medications. Recently received a 30 day notice to vacate her apt. which resulted in increased anxiety and sleeplessness. Feels alone and has repeatedly talked about her own . Stated she lied to crisis services about stabbing herself so she could be admitted to the hospital. Paranoid, believes behavioral health employees stole her phone and are lying about her to "keep her locked up for life. Denies suicidal thoughts at this time. Diagnosis/presenting symptoms: Grave disability F31.2 Bipolar 1 disorder, manic severe with psychotic symptoms, r/o F25.0 Schizoaffective d/o, manic F43.12 PTSD (post-traumatic stress disorder)-- Assessment What has happened this shift: Patient is met in the group room where she is visiting with others. Her demeanor is engaging and friendly. She states that she slept well last night. She takes all of her medications without any issues. No issues are reported with her medications today. Pateint is observed resting in her room. Patient is conversational, tone is increased in volume and pressured. She requests to know if her worker has called back regarding placement and states that she has been here too long. She is reminded that it takes time and to be patient. She discusses The [employer] that stole my phone and who knows what else. She can be difficult to re-dirct. S/I, H/I: Pt denies A/VH: Denies. Sleep: patient reports sleeping well last night, napped today, states Im just so tired ADL's: independent Group attendance: yes Were meds taken: Yes Any med S/E: None reported or observed Mental Status Exam Appearance: disheveled Eye contact: direct Behavior: friendly, cooperative Speech: increased volume at t imes, pressured, normal rate/rhythm Mood: good Affect: congruent Thought process: no delsuional thought content present Thought Content: focused on where she will live and items taken from her Cognition: a/o x4 Insight: fair to good Judgment: Poor Interventions PRN's used: none Therapeutic interventions: 1:1 therapeutic conversation with RN that included active listening and positive feedback, q15 min checks for safety, redirected as needed Restraints/seclusion/emergency medication: no Justification of Continued Inpatient Treatment: Pt admitted due to DTS and psychotic symptoms. Continued therapeutic support and medication management needed to provide stabilization, prevent decompensation, decreasing risk to patient and readmittance.
[2018-05-15 20:00] VITALS: BP 133/85
[2018-05-15] MEDS: docusate sod 250mg capsule PO SCH (20:30)
[2018-05-15] MEDS: clonazePAM 0.5mg tablet PO SCH (20:32)
[2018-05-15] MEDS: nortriptyline 25mg capsule PO SCH (20:32)
[2018-05-15] MEDS: hydrOXYzine 25 MG tablet PO SCH (20:35)
[2018-05-15] MEDS: NICOTINE POLACRILEX 2 MG LOZENGE MM PRN (20:36)
[2018-05-15] MEDS: hydrOXYzine 25 MG tablet PO PRN (22:41)
--- NOTE | 2018-05-15 23:55 | NUR ---
Nursing Progress note Chief Complaint Mood instability Legal hold: LPS Conserved Client on involuntary status DTS Report received from Danita CHARLES. Why are they here: Started experiencing increased paranoia and stating she had been messing up her medications. Recently received a 30 day notice to vacate her apt. which resulted in increased anxiety and sleeplessness. Feels alone and has repeatedly talked about her own . Stated she lied to crisis services about stabbing herself so she could be admitted to the hospital. Paranoid, believes behavioral health employees stole her phone and are lying about her to "keep her locked up for life. Denies suicidal thoughts at this time. Diagnosis/presenting symptoms: Bipolar 1, PTSD. Assessment Patient is immediately upset at the change of shift regarding placement, getting her things from her apartment and medication changes. She is agitated, perseverating and talking/yelling in an extremely loud tone. She keeps going back and forth from getting her items out of her apartment to her medications, and how she hasn't had new placement yet. She jumps from one topic to another and has poor insight on the situation. She is reminded that her pillowcase cutter was notified and a message was left, and also reminded that medications adjustment happen so that she can be stabilized. She is upset at the Dr. stating "I am not taking those, I will show him what he is doing to me." referring to her medications. This engineering technical writer was able to calm the patient, and get her to stop talking about her items and understand that nothing can be done till tomorrow am. Patient did get into a shower this evening around 2200, and was more calm when the shower was over, but still upset and restless. PRN Atarax was administered at 2241 to help with her anxiety, with good effect. Patient did finally turn to bed and fall asleep. S/I, H/I: Denies A/VH: Denies Sleep: Currently sleeping ADL's: Independent Group attendance: No groups this shift Were meds taken: Yes Any med S/E: None reported or observed Mental Status Exam Appearance: Disheveled, showered this shift, did not brush hair after shower Eye contact: Good Behavior: Perseverating, agitated, loud Speech: Pressured, loud volume Mood: Angry, agitated Affect: Congruent to mood Thought process: Perseverating on medications and placement Thought Content: Upset about finding placement and medication changes Cognition: A/O x4 Insight: Poor Judgment: Poor Interventions PRN's used: Atarax Therapeutic interventions: 1:1 assessment at patients bedside. Provide safe, therapeutic environment to establish rapport. Provide therapeutic listening in a calm supportive manner. Medication education, and administration. Monitor patient for medication side effects. Q 15 minute safety checks Restraints/seclusion/emergency medication: No Justification of Continued Inpatient Treatment: Patient admitted due to DTS and psychotic symptoms, she requires acute psychiatric stabilization
[2018-05-16 08:00] VITALS: BP 129/88
[2018-05-16] MEDS: ziprasidone 20mg capsule PO SCH ×2 (08:12→20:54)
[2018-05-16] MEDS: levoTHYROXINE 75mcg tablet PO SCH (08:13)
[2018-05-16] MEDS: metFORMIN 500mg tablet PO SCH ×3 (08:13→16:55)
[2018-05-16] MEDS: NICOTINE POLACRILEX 2 MG LOZENGE MM PRN ×3 (08:52→17:30)
--- NOTE | 2018-05-16 15:31 | NUR ---
DISCHARGE PLANNING: Spoke w/ pt's disease case manager rnDanita, At [facility], their [facility] accepted pt. they will transport pt tomorrow. Danita will phone nursing station before 9am to give ETA for pick-up and finalize for medications & details. Her phone # is [phone] Elsa Davalos [facility]
--- NOTE | 2018-05-16 16:29 | NUR ---
Nursing Progress Note: Chief Complaint Mood instability Legal hold: LPS Conserved Client on involuntary status DTS Report received from Kandis CHARLES. Why are they here: Started experiencing increased paranoia and stating she had been messing up her medications. Recently received a 30 day notice to vacate her apt. which resulted in increased anxiety and sleeplessness. Feels alone and has repeatedly talked about her own . Stated she lied to crisis services about stabbing herself so she could be admitted to the hospital. Paranoid, believes behavioral health employees stole her phone and are lying about her to "keep her locked up for life. Denies suicidal thoughts at this time. Diagnosis/presenting symptoms: Bipolar 1, PTSD, anxiety Assessment, what happened this shift: Pt requests nicotine gum frequently, unhappy that the order was changed to lozenges, states they don't do anything for her. 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 Pt is irritable, appears anxious, refused prn Atarax as she states she will need it tonight to sleep, states that she needs to take 4 tabs (100 mg) at HS to be able to sleep, encouraged pt to discuss with psychiatrist. Pt is requesting a shower, asked about her discharge earlier, stressing that she wished to be placed somewhere unlocked. Per notes, pt is being discharged to [facility] in [place] tomorrow. S/I, H/I: Pt Denies A/VH: Pt Denies Sleep: Reports difficulty sleeping at night ADL's: Independent Group attendance: did not attend am group Were meds taken: Yes Any med S/E: None reported or observed Mental Status Exam Appearance: WNL Eye contact: Good Behavior: Loud, restless/anxious at times, somewhat demanding Speech: Loud, clear Mood: Anxious, irritable Affect: Anxious Thought process: Fixated on unavailability of nicotine gum, perseverates on insomnia and wanting more Atarax at HS, Thought Content: Meds, discharge plans Cognition: A/O x4 Insight: Poor Judgment: Fair Interventions PRN's used: Nicotine lozenges Therapeutic interventions: 1:1 assessment. redirection, medication administration/monitoring and education, therapeutic conversation, Q 15 minute checks. Restraints/seclusion/emergency medication: No Justification of Continued Inpatient Treatment: Patient is conserved, placement pending, plan to discharge tomorrow to [facility] in [place], disease case manager will call in the am with ETA and details.
[2018-05-16 19:00] VITALS: BP 123/84
[2018-05-16] MEDS: hydrOXYzine 25 MG tablet PO SCH (20:54)
[2018-05-16] MEDS: docusate sod 250mg capsule PO SCH (20:54)
[2018-05-16] MEDS: QUEtiapine 25mg tablet PO SCH ×2 (20:55→22:19)
[2018-05-16] MEDS: clonazePAM 0.5mg tablet PO SCH (20:55)
[2018-05-16] MEDS ORDERED: sertraline 25mg tablet PO SCH (21:00)
[2018-05-16] MEDS: hydrOXYzine 25 MG tablet PO PRN (22:19)
--- NOTE | 2018-05-16 23:54 | NUR ---
Nursing Progress Note: Chief Complaint: Increased paranoia, insomnia, pt crisis stating she had stabbed herself with a knife. Legal hold: [facility] Conserved Report received from Danielle CHARLES Why are they here: Started experiencing increased paranoia and stating she had been messing up her medications. Recently received a 30 day notice to vacate her apt. which resulted in increased anxiety and sleeplessness. Feels alone and has repeatedly talked about her own . Stated she lied to crisis services about stabbing herself so she could be admitted to the hospital. Paranoid, believes behavioral health employees stole her phone and are lying about her to "keep her locked up for life. Denies suicidal thoughts at this time. Diagnosis/presenting symptoms: Bipolar 1, PTSD, anxiety Assessment, what happened this shift: Pt was in hallway, with raised voice, upset about her meds, pt did the same last night for most of the shift. I redirected her and gave her firm limits stating that she needs to talk to the Dr about her medication concerns and reminded her that they have been making changes to try to stabilize her and that her sleep issues were present prior to her coming here. She does acknowledge that she is feeling hypomanic. Pt did meet with Dr Nguyen and he added Seroquel 50 mg QHS with a MRx1. Pt was happy after that and then requested to take a shower and then was seen sitting in dayroom watching tv. I gave pt her meds and advised her to try to wait about an hour and then try to lay down to allow meds to start working. She did so and then still did not feel tired and was anxious and requested her PRN atarax and the repeat Seroquel. Will closely monitor her sleep tonight for effectiveness of the Seroquel. S/I, H/I: denies A/VH: denies Sleep: continues to c/o difficulty with sleep (falling asleep, staying asleep) ADL's: Independent Group attendance: no groups scheduled this shift Were meds taken: Yes Any med S/E: None reported or observed Mental Status Exam Appearance: WNL Eye contact: Good Behavior: intrusive, demanding Speech: Loud, somewhat pressured Mood: irritable, appears hypomanic Affect: intense, angry Thought process: linear Thought Content: pt continued to perseverate on her medications not being right and that is the reason she cannot sleep, no delusions or paranoia noted during interaction Cognition: A/O x4 Insight: Poor Judgment: Fair Interventions PRN's used: Seroquel MRx1 given and Atarax 50 mg given due to continued anxiety/sleeplessness Therapeutic interventions: 1:1 assessment, redirection/firm limit setting, medication administration, monitored for side effects and effects of meds, education on medication changes made, Q 15 minute checks. Restraints/seclusion/emergency medication: No Justification of Continued Inpatient Treatment: Patient is conserved, placement pending, plan to discharge tomorrow to [facility] in [place], immigration case manager will call in the am with ETA and details.
[2018-05-17] MEDS: levoTHYROXINE 75mcg tablet PO SCH (07:44)
[2018-05-17] MEDS: ziprasidone 20mg capsule PO SCH (07:44)
[2018-05-17] MEDS: metFORMIN 500mg tablet PO SCH (07:44)
[2018-05-17 08:00] VITALS: BP 106/58
[2018-05-17] MEDS ORDERED: QUET25TA34 PO (09:46)
[2018-05-17] MEDS ORDERED: HYDR-3686 PO (09:46)
[2018-05-17] MEDS ORDERED: LEVO75TA7 PO (09:46)
[2018-05-17] MEDS ORDERED: CLON0.5T12 PO (09:46)
[2018-05-17] MEDS ORDERED: ZIPR20CA12 PO (09:46)
[2018-05-17] MEDS ORDERED: ZIPR40CA2 PO (09:46)
--- NOTE | 2018-05-17 10:52 | NUR ---
DISCHARGE NOTE Patient discharged today back to [facility] and will be placed in a PH[facility]. She was accompanied and escorted out by Armaan, [facility] class a regional truck driver and [facility] [employer]. All valuables were with her when she left. Patients mood was good and affect was bright. Patient does not want to harm herself or others. Patient has improved since admit, no acute physical or emotional distress. Patient did not need any medications with her as she will be directly placed. Discharge packet provided to Armaan.
== END 2018-05-17 10:10 | DRG 885 ==
LOC: ADULT MH 14:31
PROVIDERS: ADMIT Psychiatry & Neurology Psychiatry; ATTEND Psychiatry & Neurology Psychiatry
DX: F31.2 Bipolar disorder, current episode manic severe with psychotic features (principal); F43.10 Post-traumatic stress disorder, unspecified; E03.9 Hypothyroidism, unspecified; E11.9 Type 2 diabetes mellitus without complications; G47.00 Insomnia, unspecified; R41.3 Other amnesia; K59.00 Constipation, unspecified; F17.209 Nicotine dependence, unspecified, with unspecified nicotine-induced disorders; Z98.51 Tubal ligation status; Z88.0 Allergy status to penicillin; Z88.1 Allergy status to other antibiotic agents; Z88.8 Allergy status to other drugs, medicaments and biological substances; Z79.84 Long term (current) use of oral hypoglycemic drugs; Z79.890 Hormone replacement therapy; Z79.899 Other long term (current) drug therapy; Z86.73 Personal history of transient ischemic attack (TIA), and cerebral infarction without residual deficits; Z91.5 Personal history of self-harm; Z71.6 Tobacco abuse counseling; Z68.29 Body mass index [BMI] 29.0-29.9, adult
CPT/HCPCS: 36415; 80061; 82948; 83036; 84443; 87070; 93005; Q0177